=== PATIENT | female | born 1960 | race Caucasian/White ===

== ENCOUNTER 2020-05-30 14:08 | Emergency (ER) | payer MEDICARE, MEDICAID ==
[~2020-05-30] VITALS: Ht 165.1 cm; Wt 86.2 kg
[~2020-05-30 14:08] MED LIST: ASPIRIN EC81 M1 PO; B12; BACTRIM DS TAB1 EACH PO; CARAFATE 1 GM TA1 G1; CLONIDINE0.1; DEXILANT30 MG PO; ERYTHROMYCIN250 MG; FIORICET; IBUPROFEN 800800 M1 PO; LEVOTHROID175 MCG PO; METHOTREXATE; MULTIVITAMINS1 EAC7; NORCO 5-325 TA1 EACH; NORCO 5-325 TA1 EACH PO; VALIUM10 MG PO; verapamil
[2020-05-30] MEDS ORDERED: ROXICODONE15 M1 PO (14:20)
[2020-05-30] MEDS ORDERED: SLOW FE142 MG PO (14:21)
[2020-05-30 16:49] VITALS: BP 111/62
== END 2020-05-30 17:20 | disposition home or self-care (01) ==
LOC: M.ERS 14:08
DX: U07.1 COVID-19 (principal); R11.2 Nausea with vomiting, unspecified; E03.9 Hypothyroidism, unspecified; I10 Essential (primary) hypertension; M19.90 Unspecified osteoarthritis, unspecified site; Z90.49 Acquired absence of other specified parts of digestive tract; Z79.899 Other long term (current) drug therapy; Z88.0 Allergy status to penicillin; Z88.8 Allergy status to other drugs, medicaments and biological substances